=== PATIENT | female | born 1965 | race African-American/Black ===

== ENCOUNTER → 2018-05-28 | Day surgery (SDC) | payer OTHER ==
[2018-05-24 12:13] LABS: BASOPHILS # (AUTO) 0.1 (0.0-0.1); BASOPHILS % 0.9 % (0.0-1.0); EOSINOPHILS # (AUTO) 0.3 (0.0-0.4); EOSINOPHILS % 3.2 % (0.0-6.0); HEMATOCRIT 43.4 % (34.2-44.1); HEMOGLOBIN 13.4 g/dL (12.0-16.0); LYMPHOCYTES # (AUTO) 2.5 (1.0-3.2); LYMPHOCYTES % 29.8 % (18.0-39.1); MEAN CORPUSCULAR HEMOGLOBIN 26.3 pg (28-32); MEAN CORPUSCULAR HGB CONC 30.9 g/dL (31-35); MEAN CORPUSCULAR VOLUME 85.1 fL (81-99); MONOCYTES # (AUTO) 0.9 (0.2-0.8); MONOCYTES % 10.8 % (4.4-11.3); NEUTROPHILS # (AUTO) 4.7 (2.1-6.9); NEUTROPHILS % 55.1 % (38.7-80.0); PLATELET COUNT 307 x10e3/uL (140-360); RED CELL DISTRIBUTION WIDTH 14.4 % (11.7-14.4)
--- NOTE | 2018-05-24 12:17 | Diagnostic Imaging Report ---
EXAM: XR CHEST 2 VIEWS DATE: 05/24/2018 11:36 AM INDICATION: Preop foot surgery COMPARISON: None FINDINGS: Lines and Tubes: None Heart and Mediastinum: The heart is upper limits of normal. There is prominence of the pulmonary trunk. Lungs and Pleura: Minimal opacities in the lung bases statistically represent atelectasis. Bones and Soft Tissues: No acute findings. IMPRESSION: 1. Questionable prominence pulmonary trunk, which can be seen in the setting of pulmonary hypertension. Signed by: Dr. Kody Etienne MD on 05/24/2018 12:14 PM
[2018-05-24 12:39] LABS: ANION GAP 14.9 mmol/L (8-16); BLOOD UREA NITROGEN 16 mg/dL (7-26); BUN/CREATININE RATIO 21 (6-25); CALCIUM 9.5 mg/dL (8.4-10.2); CARBON DIOXIDE 25 mmol/L (22-29); CHLORIDE 106 mmol/L (98-107); CREATININE, SERUM 0.77 mg/dL (0.57-1.11); EST GLOMERULAR FILTRATION RATE > 60 ML/MIN (60-); GLUCOSE 97 mg/dL (74-118); POTASSIUM 3.9 mmol/L (3.5-5.1); SODIUM 142 mmol/L (136-145)
[~2018-05-28] MED LIST: ACETAMINOPHEN 1000 MG/100 ML IV ONE; BETAMETHASONE DISODIUM PHOS 6 MG/ML VIAL ONE; BREO INH; BUPIVACAINE HCL 0.5% INJ 30 ML VIAL INJ ONE; CEFAZOLIN SOD 1 GM VIAL ONE; DESFLURANE 240 ML BTL INH ONE; DEXAMETHASONE SOD PHOS INJ 4 MG/ML VIAL ONE; FENTANYL CITRATE/PF 100MCG/2 ML INJ ONE; HYDROCHLOROTHIA25 MG PO; LIDOCAINE HCL 1% 30ML-PF VIAL ONE; LIDOCAINE HCL 2% LOCAL INJ 5 ML SDV VIAL INJ ONE; LOSARTAN POTAS100 MG PO; METOPROLOL SUCC50 MG PO; MIDAZOLAM HCL 2 MG/2 ML VIAL ONE; MONTELUKAST SOD10 MG PO; MUPIROCIN 2% OINT 22 GM TUBE ONE; ONDANSETRON HCL INJ 2 MG/ML VIAL ONE; PROAIR HFA INH8.5 GM INH; PROPOFOL IV EMULSION 10 MG/ML 20 ML VIAL ONE; ROCURONIUM BROMIDE 10 MG/ML 5ML VIAL ONE; SPIRIVA18 MCG INH; SUCCINYLCHOLINE 200 MG/10 ML SYR ONE; Z.0.LISINOPRIL30 MG PO
--- NOTE | 2018-05-28 09:41 | Diagnostic Imaging Report ---
PROCEDURE:ANKLE TWO VIEWS RIGHT (AP AND LATERAL) INDICATION:Post op, calcaneal surgery COMPARISON:None. FINDINGS: Overlying cast obscures bony details. There are post operative changes related to anchor placement in the posterior calcaneus with surrounding soft tissue edema. There is a plantar calcaneal spur. The ankle mortise is preserved. No evidence of fracture or malalignment. CONCLUSION: Post operative changes of the right calcaneus as above. Dictated by: HARLEY CANO M.D. on 05/28/2018 at 9:49 Electronically approved by: HARLEY CANO M.D. on 05/28/2018 at 9:49
[2018-05-28 10:30] VITALS: BP 134/79
--- NOTE | 2018-05-28 13:14 | Operative Report ---
DATE OF PROCEDURE: May 28, 2018 PREOPERATIVE DIAGNOSES 1. Retrocalcaneal heel spur, right foot. 2. Tarsal tunnel syndrome, right foot. 3. Neuralgia, right foot. 4. Plantar fasciitis, right foot. POSTOPERATIVE DIAGNOSIS: Confirmed plus equinus deformity, right foot. OPERATIVE PROCEDURES 1. Retrocalcaneal exostectomy, right foot. 2. Endoscopic plantar fasciotomy, right foot. 3. Tarsal tunnel release with a tibial nerve neurolysis. 4. Medial plantar nerve neurolysis. 5. Lateral plantar nerve neurolysis. 6. V-Y Achilles tendon lengthening. 7. Intraoperative use of fluoroscopy. 8. Trigger point shot of cortisone. 9. Application of posterior splint. ANESTHESIA: General. HEMOSTASIS: Pneumatic thigh tourniquet at 350 mmHg. PROCEDURE IN DETAIL: Patient was taken into the operating room and placed on the operating room table in the supine position. A thigh tourniquet was applied to the right thigh prior to flipping the patient prone on the operating room table. The right lower extremity was then prepped and draped in the usual aseptic manner and the following procedure was then performed. PROCEDURE #1: Endoscopic plantar fasciotomy, right foot: Attention was directed to the medial aspect of the right heel where a stab incision was performed 5 cm from the posterior aspect and 2 cm from the plantar aspect of the right heel. The incision was deepened via sharp and blunt dissection. A spatula was then introduced through the medial incision. A stab incision was performed laterally and a jhauxnx-qay-kvhrekf cannula was introduced medially. The arthroscope was then introduced through the lateral portal of the cannula, exposing the plantar fascia of the right foot. The medial half of the plantar fascia was then cut via triangle and the muscle layer was encountered. The plantar fascia was felt to be released after the medial one-half of the plantar fascial band was resected. The area was then copiously flushed with sterile antibiotic solution and suctioned. Intraoperative pictures were taken of the partial resection of the plantar fascia PROCEDURE #2, 3, and 4: Neurolysis of the tibial nerve, right foot; neurolysis of the medial plantar nerve, right foot; and neurolysis of the lateral plantar nerve, right foot: Attention was directed to the medial aspect of the right ankle where a curvilinear incision was performed overlying the tarsal canal. The incision was deepened via sharp and blunt dissection, being careful to retract any vital structures and ligating any superficial vessels as necessary. Via use of meticulous dissection and blunt dissection, the flexor retinaculum was then encountered and cut via the use of Metzenbaum scissors. At this point, the tibial nerve was encountered and via blunt dissection, all adhesions surrounding the tibial nerve was resected loose. The incision was then deepened down to the concetta pedis. The flexor retinaculum was cut down to the concetta pedis, releasing the entry of the tibial nerve into the foot. The incision was then deepened down until the medial and lateral plantar nerves were and utilizing blunt dissection, the medial and lateral plantar nerves were resected from any type of adhesions going into the foot. PROCEDURE #5: Retrocalcaneal exostectomy, right foot: Attention was then directed to the posterior aspect of the right heel at the insertion of the Achilles tendon where a 7 to 8 curvilinear incision was performed. Incision was deepened via sharp and blunt dissection being careful to retract any vital structures and ligate any superficial vessels as necessary. Paratenon was then meticulously dissected from the Achilles tendon. A V-Y incision was performed at the Achilles tendon insertion site to allow for a proper V-Y Achilles tendon lengthening, which was performed via sharp dissection. At this point, meticulous dissection was then performed trying to keep as much of the Achilles tendon attached to the medial and lateral bands, exposing the retrocalcaneal exostosis. PROCEDURE #6: Retrocalcaneal exostectomy was then performed via the use of an osteotome and a mallet. All rough and bony edges were rasped smooth. PROCEDURE #7: Intraoperative use of fluoroscopy was then used to make sure proper alignment and fixation was achieved. Closure was then obtained utilizing 3-0 Vicryl, 4-0 Vicryl, and 3-0 and 4-0 nylon for subcutaneous tissue and skin respectively. Prior to closure, a V-Y Achilles tendon lengthening was performed and utilizing a Mitek anchor, the apex beyond the Achilles tendon was reapproximated and attached to the retrocalcaneal aspect of the calcaneus and then, the tendon was re-opposed utilizing 3-0 Vicryl in a simple interrupted type fashion. Paratenon was put together utilizing 3-0 Vicryl in a running type stitch and skin was closed utilizing 3-0 nylon in a horizontal mattress type fashion. PROCEDURE #8: Trigger point shot of cortisone was then given to the plantar aspect of the right heel and medial aspect of the right tarsal canal. Then, approximately 15 mL of 0.5% plain Marcaine plus 10 mL of 1% Xylocaine plain were used to achieve local anesthesia to above-mentioned surgical area. Sterile dressing was applied. Upon release of the thigh tourniquet, blood hyperemia was noted to be immediate to all digits of the patient's right foot. PROCEDURE #9: Application of posterior splint. A properly placed posterior splint was then applied, keeping the foot at 90 degrees with respect to the leg to try to prevent any type of postop complications. Patient was then transferred from the OR to recovery room with vital signs stable and neurovascular status intact. No intraoperative complications were encountered. Blood loss from the surgery was minimal. Patient is to remain nonweightbearing with aid of crutches and a knee walker and is to follow up within 1 week. Understands that no warranties or guarantees were given. Job#: [id number] VAS
--- OUTSIDE RECORDS SUMMARY | 2018-06-04 12:10 | XMS REPORT ---
Author Author [facility] Address Unknown Phone Unavailable Care Team Providers Care Instrumentation Chemist Name Role Phone JORJE LUIS Unavailable Unavailable Problems This patient has no known problems. Allergies, Adverse Reactions, Alerts This patient has no known allergies or adverse reactions. Medications This patient has no known medications. Results Test Description Test Time Test Comments Text Results Atomic Results Result Comments ANKLE TWO VIEWS RIGHT 2018-05-28 09:49:00 [place] [id number] Patient Name: MARYAM BARTLETT MR #: [id number] : 1965 Age/Sex: 52/F Req #: [id number] Adm Physician: Ordered by: JORJE LUIS DPM Report #: [id number] Location: OR Room/Bed: Procedure: [id number] DX/ANKLE TWO VIEWS RIGHT Exam Date: 05/28/18 Exam Time: 909 REPORT STATUS: Signed PROCEDURE: ANKLE TWO VIEWS RIGHT (AP AND LATERAL) INDICATION: Post op, calcaneal surgery COMPARISON: None. FINDINGS: Overlying cast obscures bony details. There are post operative changes related to anchor placement in the posterior calcaneus with surrounding soft tissue edema. There is a plantar calcaneal spur. The ankle mortise is preserved. No evidence of fracture or malalignment. CONCLUSION: Post operative changes of the right calcaneus as above. Dictated by: HARLEY CANO M.D. on 05/28/2018 at 9:49 Electronically approved by: HARLEY CANO M.D. on 05/28/2018 at 9:49 Dictated By: HARLEY CANO MD 8 Transcribed By: ERICK on 05/28/18948 COPY TO: JORJE LUIS DPM CHEST 2 VIEWS 2018-05-24 12:13:00 [place] [id number] Patient Name: MARYAM BARTLETT MR #: [id number] : 1965 Age/Sex: 52/F Req #: [id number] Adm Physician: Ordered by: JORJE LUIS DPM Report #: [id number] Location: OR Room/Bed: Procedure: [id number] DX/CHEST 2 VIEWS Exam Date: Exam Time: REPORT STATUS: Signed EXAM: XR CHEST 2 VIEWS DATE: 05/24/2018 11:36 AM INDICATION: Preop foot surgery COMPARISON: None FINDINGS: Lines and Tubes: None Heart and Mediastinum: The heart is upper limits of normal. There is prominence of the pulmonary trunk. Lungs and Pleura: Minimal opacities in the lung bases statistically represent atelectasis. Bones and Soft Tissues: No acute findings. IMPRESSION: 1. Questionable prominence pulmonary trunk, which can be seen in the setting of pulmonary hypertension. Signed by: Dr. Kody Etienne MD on 05/24/2018 12:14 PM Dictated By: KODY ETIENNE MD 13 Transcribed By: PEDRO on 05/24/181213 COPY TO: JORJE LUIS DPM
== END | disposition home or self-care (01) ==
LOC: OR 05:29
PROVIDERS: ATTEND Podiatrist Foot Surgery
DX: M77.31 Calcaneal spur, right foot (principal); G57.51 Tarsal tunnel syndrome, right lower limb; M72.2 Plantar fascial fibromatosis; G58.8 Other specified mononeuropathies; J44.9 Chronic obstructive pulmonary disease, unspecified; G47.30 Sleep apnea, unspecified; I10 Essential (primary) hypertension; I49.3 Ventricular premature depolarization; E66.01 Morbid (severe) obesity due to excess calories; Z01.810 Encounter for preprocedural cardiovascular examination; Z01.812 Encounter for preprocedural laboratory examination; Z01.818 Encounter for other preprocedural examination
CPT/HCPCS: 27685; 28035; 28118; 29893; 36415; 64704 ×2; 71046; 73600; 80048; 85025; 88304; 88311; 93005; J0690; J0720; J1100; J2001 ×2; J2250; J2405

== ENCOUNTER → 2019-02-03 | Outpatient (CLI) | payer OTHER ==
[~2019-02-03] MED LIST changes: -ACETAMINOPHEN 1000 MG/100 ML IV ONE; -BETAMETHASONE DISODIUM PHOS 6 MG/ML VIAL ONE; -BUPIVACAINE HCL 0.5% INJ 30 ML VIAL INJ ONE; -CEFAZOLIN SOD 1 GM VIAL ONE; -DESFLURANE 240 ML BTL INH ONE; -DEXAMETHASONE SOD PHOS INJ 4 MG/ML VIAL ONE; -FENTANYL CITRATE/PF 100MCG/2 ML INJ ONE; -LIDOCAINE HCL 1% 30ML-PF VIAL ONE; -LIDOCAINE HCL 2% LOCAL INJ 5 ML SDV VIAL INJ ONE; -MIDAZOLAM HCL 2 MG/2 ML VIAL ONE; -MUPIROCIN 2% OINT 22 GM TUBE ONE; -ONDANSETRON HCL INJ 2 MG/ML VIAL ONE; -PROPOFOL IV EMULSION 10 MG/ML 20 ML VIAL ONE; -ROCURONIUM BROMIDE 10 MG/ML 5ML VIAL ONE; -SUCCINYLCHOLINE 200 MG/10 ML SYR ONE
--- NOTE | 2019-02-04 16:02 | Myoview Stress Test ---
DATE OF STUDY: 02/03/2019 10:48:00 Stress Test - Treadmill ONLY Nuclear gated myocardial perfusion scan report Nuclear gated myocardial perfusion scan performed as per protocol at [facility]. The stress test is supervised by Dr. Jeevan Way. I read only the nuclear part of the stress test. Lexiscan injected 0.4 mg intravenously stress agent. Cardiolite is injected 11 mCi for resting protocol and 33 mCi for stress protocol. IMPRESSION: 1. Normal gated myocardial perfusion scan. No evidence of ischemia or scar noted. 2. Left ventricular ejection fraction of 65%. 3. Normal study. Nakul Holman MD PVB/MODL /[id number]
== END ==
LOC: NM 10:32
PROVIDERS: ATTEND Internal Medicine Cardiovascular Disease
DX: R94.39 Abnormal result of other cardiovascular function study (principal)
CPT/HCPCS: 78452; 93017; A9502